=== PATIENT | female | born 1995 | race Caucasian/White ===

== ENCOUNTER 2017-12-22 23:43 | Emergency (ER) | payer MEDICAID ==
[~2017-12-22] VITALS: Ht 154.9 cm; Wt 75.0 kg
[2017-12-23] MEDS ORDERED: ONDANSETRON 4MG ODT PO ONE ×2 (01:00→01:15)
[2017-12-23] MEDS ORDERED: ACETAMINOPHEN WITH CODEINE 300/30MG TABLET PO ONE (01:15)
[2017-12-23 01:32] VITALS: BP 123/61
== END 2017-12-23 01:25 | disposition home or self-care (01) ==
LOC: ER 23:43
DX: O03.9 Complete or unspecified spontaneous abortion without complication (principal); Z88.0 Allergy status to penicillin
CPT/HCPCS: 99283; Q0162